=== PATIENT | male | born 1990 | race African-American/Black ===

== ENCOUNTER 2018-06-23 19:03 | Emergency (ER) | payer SELFPAY ==
[~2018-06-23] VITALS: Ht 180.3 cm; Wt 78.0 kg
[2018-06-23] MEDS ORDERED: LEVETIRACETAM 500MG PREMIX 100 ML IV ONE (20:45)
[2018-06-23 22:06] LABS: HEMATOCRIT. 47.4 % (42.0-52.0); HEMOGLOBIN. 16.1 g/dL (14.0-18.0); MEAN CORPUSCULAR HEMOGLOBIN 30.7 pg (28.0-32.0); MEAN CORPUSCULAR VOLUME 90.7 fL (80.0-94.0); MEAN PLATELET VOLUME 8.3 fl (7.4-10.4); PLATELET 217 x1000/uL (130-400); RED BLOOD CELL COUNT 5.22 mill/uL (4.7-6.1); RED CELL DISTRIBUTION WIDTH 12.5 % (11.6-14.6)
[2018-06-23 22:13] LABS: CHLORIDE 103 mEq/L (98-107)
[2018-06-23 22:24] LABS: PLATELET ESTIMATE NORMAL
[2018-06-23] MEDS ORDERED: ACETAMINOPHEN 325MG TABLET PO ONE (22:30)
[2018-06-23 22:33] LABS: CARBAMAZEPINE 10.9 ug/mL (4-12)
[2018-06-23 22:35] LABS: PHENOBARBITAL < 2.1 ug/mL (15.0-40.0)
[2018-06-23 23:04] LABS: *AMPHETAMINES SCREEN URINE NEGATIVE (NEGATIVE); *BARBITURATES SCREEN URINE NEGATIVE (NEGATIVE); *BENZODIAZEPINES SCREEN URINE NEGATIVE (NEGATIVE); *COCAINE SCREEN URINE NEGATIVE (NEGATIVE); METHADONE URINE SCREEN NEGATIVE (NEGATIVE)
[2018-06-23 23:05] LABS: CANNABINOID URINE SCREEN NEGATIVE (NEGATIVE); OPIATES URINE SCREEN NEGATIVE (NEGATIVE); PHENCYCLIDINE URINE SCREEN NEGATIVE (NEGATIVE)
[2018-06-23 23:11] VITALS: BP 144/80
== END 2018-06-23 23:30 | disposition home or self-care (01) ==
LOC: ER 19:03
DX: G40.909 Epilepsy, unspecified, not intractable, without status epilepticus (principal)
CPT/HCPCS: 36415; 70450; 80053; 80156; 80165; 80184; 80185; 80305; 85025; 96365; 99284; J1953